=== PATIENT | male | born 1950 | race Caucasian/White ===

== ENCOUNTER 2016-11-27 10:04 | Day surgery (SDC) | payer OTHER ==
[2016-11-23 09:21] VITALS: BMI 29.2
[~2016-11-27 10:04] MED LIST: LACTATED RINGERS 1,000 ML IV SCH
[2016-11-27 10:45] VITALS: TEMP 97.4
[2016-11-27] MEDS ORDERED: LIDOCAINE 1% 20 ML VIAL (10MG/ML) FOR IV START SQ ONE (10:48)
[2016-11-27] MEDS ORDERED: PROPOFOL 10 MG/ML 20 ML VIAL IV ONE (11:53)
[2016-11-27] MEDS ORDERED: LIDOCAINE 1% INJ 10MG/ML (20 ML MDV) ONE (11:53)
--- NOTE | 2016-11-27 12:31 | P.PCN ---
Date of Procedure: 11/27/16 Preoperative Diagnosis: Postoperative Diagnosis: Procedure(s) Performed: Procedure: Total colonoscopy. Preoperative diagnosis: Screening for neoplasia, patient has history of polyps. Postoperative diagnosis: Exam within normal limits. Preparation: HalfLytely prep. Sedation: Was provided by anesthesia. Brief clinical history: The patient is a 66-year-old male who is referred for this evaluation for screening for neoplasia because of history of polyps. The patient had an examination around 5 years ago and that was followed by right colon resection for benign polyp. He was advised to have a repeat exam in 5 years. He has no abdominal complaints, bleeding or anemia. Procedure: With the patient on his left lateral decubitus position and after informed consent and adequate sedation, the perianal area was inspected and it did not show any fissures or fistulas. There were no masses felt on digital rectal examination. The Olympus CFQ 160L video colonoscope was then inserted in the rectum in the usual fashion and advanced to the right side. The right anastomosis area was noted. The colon appeared healthy. No polyps or tumors were seen. I retroflexed endoscope in the rectum before the endoscope was. The patient tolerated the procedure well. Plan: The patient was reassured. He will follow up with you as planned and I recommended repeat exam in 5 years. Implants: Indications for Procedure: Operative Findings: Description of Procedure:
[2016-11-27 13:01] VITALS: RESP 18
[2016-11-27 13:07] VITALS: BP 150/80; PULSE 46
== END 2016-11-27 13:09 | disposition home or self-care (01) ==
LOC: ORWHC2ENDO 10:04
DX: Z12.11 Encounter for screening for malignant neoplasm of colon (principal); Z86.010 Personal history of colon polyps; Z98.0 Intestinal bypass and anastomosis status; I10 Essential (primary) hypertension; E78.5 Hyperlipidemia, unspecified; Z79.82 Long term (current) use of aspirin; Z79.1 Long term (current) use of non-steroidal anti-inflammatories (NSAID); Z79.899 Other long term (current) drug therapy
CPT/HCPCS: J2001; J2704; G0105; 45378

== ENCOUNTER → 2018-01-28 | Outpatient (CLI) | payer OTHER ==
[2018-01-28 11:34] LABS: Blood Urea Nitrogen 15 mg/dL (9-20)
--- NOTE | 2018-01-28 13:59 | CT ---
EXAMINATION TYPE: CT abdomen pelvis wo/w con DATE OF EXAM: 01/28/2018 COMPARISON: None INDICATION: Abd pain DLP: 2477 mGycm, Automated exposure control for dose reduction was used. CONTRAST: 100 mL of Isovue 300. Study performed without Oral Contrast TECHNIQUE: Axial images were obtained from above the diaphragm to the pubic rami in the axial plane a t 5 mm thick sections. Reconstructed images are reviewed on the computer in the coronal plane. FINDINGS: Limited CT sections are obtained the lung bases. The lung bases are clear. CT ABDOMEN: Liver: There is a 1.9 cm hypodensity within the superior medial right lobe liver measuring 0 Hounsfie ld units cyst. Additional smaller hypodensities in the left lobe liver measuring 0.6 likely is an add itional cyst. Additional hypodensities in right lobe liver measuring 20 - Hounsfield units approximat russ 1 to 1.1 cm each compatible with additional cysts. Spleen: Normal Pancreas: Normal Adrenal glands: The adrenal glands are normal. Gallbladder: Normal Kidneys: No masses are evident. No hydronephrosis is present. No cysts are present. There is a 0.2 cm nonobstructing calcification in the posterior lateral left kidney. There is a 0.4 cm nonobstructi ng inferior to mid right posterior lateral renal stone. Some additional very tiny punctate calcificat ions are likely present on the right. Aorta: Vascular calcification is within the aorta. Inferior vena cava: Normal. CT PELVIS: Loops of bowel within the abdomen and pelvis are normal. There are loops of bowel which are incom pletely distended or lack oral contrast limiting their evaluation. There are loops of bowel anterior to the liver. Appendix: Not identified Urinary bladder: Normal. Genitourinary structures: Prostate appears slightly prominent. Osseous structures: No suspicious lytic or sclerotic lesions. Probable bone islands or sacral ala brii aterally. Degenerative disc changes are present. Sclerotic area within the right L3 vertebral level. Additional sclerotic areas within the left aspect of L2. IMPRESSIONS: 1. Nonobstructing renal stones. 2. Couple sclerotic areas within the L2 and L3 vertebral levels. Sclerotic metastasis are not exclude d. 3. Hepatic cysts
== END | disposition home or self-care (01) ==
LOC: RADCTMAIN 10:52
DX: N20.0 Calculus of kidney (principal); K76.89 Other specified diseases of liver
CPT/HCPCS: 82565; 84520; 74178; 36415; Q9967

== ENCOUNTER → 2018-02-26 | Outpatient (CLI) | payer OTHER ==
--- NOTE | 2018-02-26 14:29 | MR ---
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 Technique: Multiplanar, multisequence images of the thoracic spine were obtained before and after adm inistration of 10 mL intravenous Gadavist gadolinium contrast. FINDINGS: There is marked diffuse heterogeneity of marrow signal. Interposed areas of fatty marrow are present with some rounded areas suggesting fatty matrix hemangiomas such as within T3, T6, and T8 vertebral b odies. No evident osseous destruction is seen but the extensive heterogeneous signal change extends to invol ve the posterior elements as well. No abnormal accident within the spinal canal. There is degenerative disc disease and ligamentum flavum thickening within the cervical spine with mi ld spinal canal stenoses from C2 through C7 levels. No large focal disc herniation seen in the thoracic spine or spinal canal stenosis. Mild multilevel d egenerative disc disease. On the right, facet arthropathy contribute to mild neural foraminal narrowing at T1-T2 and T2-T3. Normal course, caliber, and signal intensity of the thoracic spinal cord. No prevertebral or paravertebral soft tissue abnormality seen. 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 IMPRESSION: 1. Marked diffuse heterogeneity of marrow signal. This could reflect extensive heterogeneous red lis ow hyperplasia such as in the setting of anemia, obesity, smoking, or chronic disease. Other infiltra tive process such as myelofibrosis or neoplastic process is difficult to exclude at this time. Also, correlate with findings on nuclear medicine bone scan. Consider bone marrow biopsy/aspiration. 2. No abnormal enhancement within the spinal canal.
--- NOTE | 2018-02-26 15:41 | NM ---
EXAMINATION TYPE: NM bone scan whole body DATE OF EXAM: 02/26/2018 COMPARISON: NONE HISTORY: Delayed whole-body scanning was performed following the injection of 24.9 mCi Tc 99m MDP. Images acq uired 3.75 hours post injection. FINDINGS: Vague focal uptake is noted to involve the right L3 pedicle. Mild degenerative uptake is seen about t he lumbar and dorsal spine. Degenerative uptake is seen within the shoulders, sternoclavicular joints , bilateral wrists, knees and right great toe. Postoperative changes right knee. IMPRESSION: 1. Nonspecific focal uptake involving the right L3 pedicle. While this could be degenerative in natur e metastatic disease is not excluded.
== END | disposition home or self-care (01) ==
LOC: RADNMMAIN 09:53
DX: R93.7 Abnormal findings on diagnostic imaging of other parts of musculoskeletal system (principal)
CPT/HCPCS: 72157; 78306; A9503; A9581

== ENCOUNTER → 2020-12-07 | Outpatient (CLI) | payer OTHER ==
--- NOTE | 2020-12-07 16:08 | US ---
EXAMINATION TYPE: US carotid duplex BILAT DATE OF EXAM: 12/07/2020 COMPARISON: NONE CLINICAL HISTORY: I65.29 Occlusion and stenosis of unspecified carotid. Bruit possibility on the righ t, no h/o stroke EXAM MEASUREMENTS: RIGHT: Peak Systolic Velocity (PSV) cm/sec ----- Right CCA: 77.3 ----- Right ICA: 78.8 ----- Right ECA: 80.4 ICA/CCA ratio: 1.3 RIGHT: End Diastole cm/sec ----- Right CCA: 16.2 ----- Right ICA: 19.3 ----- Right ECA: 9.9 LEFT: Peak Systolic Velocity (PSV) cm/sec ----- Left CCA: 78.9 ----- Left ICA: 101 ----- Left ECA: 112 ICA/CCA ratio: 1.0 LEFT: End Diastole cm/sec ----- Left CCA: 15.0 ----- Left ICA: 27.9 ----- Left ECA: 9.2 VERTEBRALS (direction of flow): Right Vertebral: Antegrade Left Vertebral: Antegrade Rhythm: Normal Mild heterogeneous plaque at bilateral bulbs, no significant stenosis seen. IMPRESSION: 1. Bilateral atherosclerotic plaque at the common carotid artery bifurcations. This is mild to modera te plaque. No evidence of hemodynamically significant stenosis of the bilateral internal carotid анна valeria. Less than 50% stenosis of the bilateral internal carotid arteries. Criteria for Assigning % of Stenosis / Diameter reduction (Estimation based on the indirect measurements of the internal carotid artery velocities (ICA PSV). 1. Normal (no stenosis)=ICA PSV < 125 cm/s: ratio < 2.0: ICA EDV<40 cm/s. 2. Less than 50% stenosis=ICA PSV < 125 cm/s: ratio < 2.0: ICA EDV<40 cm/s. 3. 50 to 69% stenosis=ICA PSV of 125 to 230 cm/s: ration 2.0 ? 4.0: ICA EDV 40-100 cm/s. 4. Greater than 70% stenosis to near occlusion= ICA PSV > 230 cm/s: ratio > 4.0: ICA EDV > 100 cm/s. 5. Near occlusion= ICA PSV velocities may be low or undetectable: variable ratio and ICA EDV. 6. Total occlusion=unable to detect flow.
== END | disposition home or self-care (01) ==
LOC: RADUSWWP 10:45
PROVIDERS: ATTEND Nurse Practitioner Acute Care
DX: I65.23 Occlusion and stenosis of bilateral carotid arteries (principal)
CPT/HCPCS: 93880

== ENCOUNTER 2021-12-13 10:15 | Day surgery (SDC) | payer OTHER ==
[2021-12-12 10:16] VITALS: BMI 29.9
[2021-12-13 11:18] VITALS: TEMP 97.1
[2021-12-13] MEDS ORDERED: PROPOFOL 10 MG/ML 20 ML VIAL IV ONE (12:00)
[2021-12-13] MEDS ORDERED: LIDOCAINE 2% INJ 20 MG/ML (2 ML VIAL) ONE (12:00)
--- NOTE | 2021-12-13 12:22 | P.PCN ---
Date of Procedure: 12/13/21 Procedure(s) Performed: BRIEF HISTORY: Patient is a 71-year-old pleasant white male scheduled for an elective colonoscopy as a part of value should prior history of colon polyps. He had right colon resection 10 years ago for large colon polyp. PROCEDURE PERFORMED: Colonoscopy. PREOPERATIVE DIAGNOSIS: Screening for colon cancer. IV sedation per Anesthesia. PROCEDURE: After informed consent was obtained, the patient, was brought into the endoscopy unit. IV sedation was administered by Anesthesia under continuous monitoring. Digital rectal examination was normal. Initially the Olympus CF-160 flexible video colonoscope was then inserted in the rectum, gradually advanced into the right colon without any difficulty. Ileocolic anastomosis was visualized and appeared normal. Prep was good. Mucosa of the ascending colon, transverse colon, descending colon, sigmoid colon, and rectum appeared normal. Retroflexion was performed in the rectum and no lesions were seen. The patient tolerated the procedure well. IMPRESSION: Normal-appearing colon from rectum to cecum no evidence of colorectal neoplasia . RECOMMENDATIONS: Findings of this examination were discussed with the patient well as his family. He was advised to have a repeat surveillance colonoscopy in 5 years because of the prior history of colon polyps
[2021-12-13 12:40] VITALS: BP 127/72; PULSE 59; RESP 20
== END 2021-12-13 12:54 ==
LOC: ORWHC2ENDO 10:15
PROVIDERS: ATTEND Internal Medicine Gastroenterology
DX: Z12.11 Encounter for screening for malignant neoplasm of colon (principal); Z86.010 Personal history of colon polyps; I10 Essential (primary) hypertension; E78.5 Hyperlipidemia, unspecified; N40.0 Benign prostatic hyperplasia without lower urinary tract symptoms; Z87.891 Personal history of nicotine dependence; Z91.030 Bee allergy status; Z79.51 Long term (current) use of inhaled steroids; Z79.899 Other long term (current) drug therapy; Z80.8 Family history of malignant neoplasm of other organs or systems
CPT/HCPCS: 45378; J2704; J2001

== ENCOUNTER → 2023-12-24 | Outpatient (CLI) | payer OTHER, MEDICARE | END | disposition home or self-care (01) | LOC: LABWHC1 09:06 | PROVIDERS: ATTEND Radiology Radiation Oncology | DX: C61 Malignant neoplasm of prostate (principal) | CPT/HCPCS: 36415; 84153 ==

== ENCOUNTER → 2024-05-29 | Outpatient (CLI) | payer OTHER | END | disposition home or self-care (01) | LOC: LABWHC1 11:09 | PROVIDERS: ATTEND Radiology Radiation Oncology | DX: C61 Malignant neoplasm of prostate (principal); Z87.891 Personal history of nicotine dependence | CPT/HCPCS: 36415; 84153 ==